=== PATIENT | female | born 1970 | race Caucasian/White ===

== ENCOUNTER 2019-01-02 18:05 | Emergency (ER) | payer MEDICAID ==
[~2019-01-02] VITALS: Ht 170.2 cm; Wt 114.0 kg
[~2019-01-02 18:05] MED LIST: HYDR-4353 PO; LIDOcaine 1% W/epiNEPHrine 1:100,000 20ml vial ONE
[2019-01-02 18:07] VITALS: BP 171/97
== END 2019-01-02 20:28 | disposition home or self-care (01) ==
LOC: ER 18:06
DX: S91.202A Unspecified open wound of left great toe with damage to nail, initial encounter (principal); L60.0 Ingrowing nail; G89.29 Other chronic pain; Z88.5 Allergy status to narcotic agent; Z79.899 Other long term (current) drug therapy; X58.XXXA Exposure to other specified factors, initial encounter; Y93.89 Activity, other specified; Y92.89 Other specified places as the place of occurrence of the external cause; Y99.8 Other external cause status
CPT/HCPCS: 11765; 99283

== ENCOUNTER → 2023-09-10 | Outpatient (CLI) | payer MEDICAID ==
[~2023-09-10] MED LIST changes: -LIDOcaine 1% W/epiNEPHrine 1:100,000 20ml vial ONE
== END | disposition home or self-care (01) ==
LOC: RAD 10:51
PROVIDERS: ATTEND Specialist
DX: M79.644 Pain in right finger(s) (principal); Z98.890 Other specified postprocedural states
CPT/HCPCS: 73140